=== PATIENT | female | born 1985 | race Asian ===

== ENCOUNTER 2020-11-24 16:25 | Inpatient (IN) | payer OTHER ==
[~2020-11-24] VITALS: Ht 165.1 cm; Wt 81.2 kg
[2020-11-25] MEDS ORDERED: ACETAMINOPHEN 325 MG TABLET PO PRN ×2 (12:15)
[2020-11-25] MEDS ORDERED: MAGNESIUM HYDROXIDE SUSPENSION 30 ML UDCUP PO PRN (12:15)
[2020-11-25] MEDS ORDERED: OxyCODONE HCL/ACETAMINOPHEN 5-325 MG TABLET PO PRN (12:15)
[2020-11-25 12:28] VITALS: BP 143/70
[2020-11-25] MEDS: FAMOTIDINE 20 MG TABLET PO SCH (16:18)
[2020-11-25] MEDS: DOCUSATE SODIUM 100 MG CAPSULE PO SCH ×2 (16:18→20:36)
[2020-11-25 16:43] VITALS: BP 126/91
[2020-11-25] MEDS ORDERED: DEXTROSE 50%-WATER 25 GM/50 ML SYRINGE IVP PRN (17:15)
[2020-11-25 20:00] VITALS: BP_SYST 110; BP_DIAS 59; BP_DIAS 83
[2020-11-25] MEDS: DEXAMETHASONE 4 MG TABLET PO SCH (20:37)
[2020-11-25] MEDS: SENNA 187 MG TABLET PO SCH (20:37)
[2020-11-25 21:17] LABS: GLUCOMETER DEV NAME(LOC) 2WR.1C; GLUCOSE,POINT OF CARE 124 MG/DL (70-110)
[2020-11-26] MEDS: FAMOTIDINE 20 MG TABLET PO SCH ×2 (05:29→16:35)
[2020-11-26 05:40] VITALS: BP 118/78
[2020-11-26 05:50] LABS: GLUCOMETER DEV NAME(LOC) 2WR.1C; GLUCOSE,POINT OF CARE 126 MG/DL (70-110)
[2020-11-26 08:10] VITALS: BP 122/50
[2020-11-26] MEDS: DOCUSATE SODIUM 100 MG CAPSULE PO SCH ×2 (08:19→20:25)
[2020-11-26] MEDS: DEXAMETHASONE 4 MG TABLET PO SCH ×2 (08:19→20:25)
[2020-11-26] MEDS: POLYETHYLENE GLYCOL 3350 17 GM PACKET PO SCH (08:19)
[2020-11-26 08:36] LABS: BASOPHILS % (AUTO) 0.4 % (0.0-2.0); EOSINOPHILS % (AUTO) 0 % (1.0-6.0); HEMATOCRIT 37.2 % (36-46); HEMOGLOBIN 12.2 g/dL (12.0-16.0); LYMPHOCYTES # (AUTO) 1.9 K/uL (1.0-4.8); LYMPHOCYTES % (AUTO) 14.9 % (22.0-44.0); MEAN CORPUSCULAR HEMOGLOBIN 29.5 pg (26.0-34.0); MEAN CORPUSCULAR HGB CONC 32.7 G/dL (31.0-37.0); MEAN CORPUSCULAR VOLUME 90 fL (80-100); MONOCYTES # (AUTO) 0.8 K/uL (0.1-1.0); MONOCYTES % (AUTO) 5.9 % (2.0-9.0); NEUTROPHILS # (AUTO) 10.1 K/uL (1.8-7.7); NEUTROPHILS % (AUTO) 78.8 % (40.0-70.0); PLATELET COUNT (AUTO) 325 K/uL (150-450); RED BLOOD CELL COUNT(AUTO) 4.12 MIL/uL (4.00-5.20); RED CELL DISTRIBUTION WIDTH 13.8 % (11.5-14.5)
[2020-11-26 08:51] LABS: ALANINE AMINOTRANSFERASE 33 U/L (12-78); ALBUMIN 4.2 g/dL (3.4-5.0); ALKALINE PHOSPHATASE 63 U/L (46-116); ANION GAP 10 mmol/L (8-16); ASPARTATE AMINOTRANSFERASE 14 U/L (15-37); BILIRUBIN,TOTAL 0.4 mg/dL (0.1-1.0); CALCIUM, TOTAL 8.3 mg/dL (8.8-10.5); CARBON DIOXIDE 28 mmol/L (22-29); CHLORIDE 99 mmol/L (98-107); CREATININE 0.59 mg/dL (0.60-1.30); GLOMERULAR FILTR. RATE CALC > 60 mL/min (>60); GLUCOSE,RANDOM 127 mg/dL (70-110); POTASSIUM 3.9 mmol/L (3.5-5.1); SODIUM SERUM 137 mmol/L (136-145); TOTAL PROTEIN, SERUM 7.1 g/dL (6.4-8.2); UREA NITROGEN, BLOOD 16 mg/dL (7-18)
[2020-11-26 16:10] VITALS: BP 110/66
[2020-11-26 17:52] LABS: GLUCOMETER DEV NAME(LOC) 2WR.1C; GLUCOSE,POINT OF CARE 120 MG/DL (70-110)
[2020-11-26 17:52] LABS: GLUCOMETER DEV NAME(LOC) 2WR.1C; GLUCOSE,POINT OF CARE 177 MG/DL (70-110)
[2020-11-26] MEDS: SENNA 187 MG TABLET PO SCH (20:25)
[2020-11-26 21:36] LABS: GLUCOMETER DEV NAME(LOC) 2WR.1C; GLUCOSE,POINT OF CARE 236 MG/DL (70-110)
[2020-11-27 05:00] VITALS: BP 120/75
[2020-11-27] MEDS: FAMOTIDINE 20 MG TABLET PO SCH ×3 (05:42→20:34)
[2020-11-27] MEDS: POLYETHYLENE GLYCOL 3350 17 GM PACKET PO SCH (08:34)
[2020-11-27] MEDS: DEXAMETHASONE 4 MG TABLET PO SCH ×2 (08:34→20:34)
[2020-11-27] MEDS: DOCUSATE SODIUM 100 MG CAPSULE PO SCH ×2 (08:53→20:34)
[2020-11-27 09:22] VITALS: BP 121/78
[2020-11-27 12:32] LABS: GLUCOMETER DEV NAME(LOC) 2WR.1C; GLUCOSE,POINT OF CARE 142 MG/DL (70-110)
[2020-11-27 13:26] LABS: GLUCOMETER DEV NAME(LOC) 2WR.2B; GLUCOSE,POINT OF CARE 99 MG/DL (70-110)
[2020-11-27 16:16] VITALS: BP 122/76
[2020-11-27 17:25] LABS: GLUCOMETER DEV NAME(LOC) 2WR.1C; GLUCOSE,POINT OF CARE 133 MG/DL (70-110)
[2020-11-27] MEDS: SENNA 187 MG TABLET PO SCH (20:34)
[2020-11-27] MEDS: INSULIN LISPRO 100 UNITS/ML SQ PRN (20:47)
[2020-11-27] MEDS: MELATONIN 3 MG TABLET PO PRN (20:55)
[2020-11-27 21:26] LABS: GLUCOMETER DEV NAME(LOC) 2WR.2B; GLUCOSE,POINT OF CARE 169 MG/DL (70-110)
[2020-11-28] VITALS: BP 111/64
[2020-11-28 06:16] LABS: GLUCOMETER DEV NAME(LOC) 2WR.2B; GLUCOSE,POINT OF CARE 118 MG/DL (70-110)
[2020-11-28 07:52] VITALS: BP 131/65
[2020-11-28 08:01] VITALS: BP 131/65
[2020-11-28] MEDS: DOCUSATE SODIUM 100 MG CAPSULE PO SCH ×2 (08:23→20:46)
[2020-11-28] MEDS: POLYETHYLENE GLYCOL 3350 17 GM PACKET PO SCH (08:29)
[2020-11-28] MEDS: DEXAMETHASONE 4 MG TABLET PO SCH ×2 (08:30→20:47)
[2020-11-28] MEDS: FAMOTIDINE 20 MG TABLET PO SCH ×2 (08:30→20:46)
[2020-11-28 16:00] VITALS: BP 110/72
[2020-11-28 19:51] LABS: GLUCOMETER DEV NAME(LOC) 2WR.2B; GLUCOSE,POINT OF CARE 163 MG/DL (70-110)
[2020-11-28] MEDS: INSULIN LISPRO 100 UNITS/ML SQ PRN (20:45)
[2020-11-28] MEDS: MELATONIN 3 MG TABLET PO PRN (20:46)
[2020-11-28] MEDS: SENNA 187 MG TABLET PO SCH (20:46)
[2020-11-28 21:35] LABS: GLUCOMETER DEV NAME(LOC) 2WR.1C; GLUCOSE,POINT OF CARE 154 MG/DL (70-110)
[2020-11-29 05:41] VITALS: BP 116/75
[2020-11-29 08:01] VITALS: BP 121/81
[2020-11-29] MEDS: DEXAMETHASONE 2 MG TABLET PO SCH ×2 (08:33→21:18)
[2020-11-29] MEDS: FAMOTIDINE 20 MG TABLET PO SCH ×2 (08:33→21:17)
[2020-11-29] MEDS: DOCUSATE SODIUM 100 MG CAPSULE PO SCH ×2 (08:33→21:17)
[2020-11-29] MEDS: POLYETHYLENE GLYCOL 3350 17 GM PACKET PO SCH (08:34)
[2020-11-29 16:00] VITALS: BP 113/75
[2020-11-29 16:15] LABS: GLUCOMETER DEV NAME(LOC) 2WR.1C; GLUCOSE,POINT OF CARE 119 MG/DL (70-110)
[2020-11-29 17:43] LABS: GLUCOMETER DEV NAME(LOC) 2WR.1C; GLUCOSE,POINT OF CARE 84 MG/DL (70-110)
[2020-11-29] MEDS: SENNA 187 MG TABLET PO SCH (21:17)
[2020-11-30 00:10] VITALS: BP 112/71
[2020-11-30 05:57] LABS: GLUCOMETER DEV NAME(LOC) 2WR.1C; GLUCOSE,POINT OF CARE 136 MG/DL (70-110)
[2020-11-30] MEDS: FAMOTIDINE 20 MG TABLET PO SCH ×2 (07:48→20:04)
[2020-11-30] MEDS: DOCUSATE SODIUM 100 MG CAPSULE PO SCH ×2 (07:48→20:03)
[2020-11-30] MEDS: DEXAMETHASONE 2 MG TABLET PO SCH ×2 (07:48→20:04)
[2020-11-30] MEDS: POLYETHYLENE GLYCOL 3350 17 GM PACKET PO SCH (07:49)
[2020-11-30 08:10] VITALS: BP 112/66
[2020-11-30 15:33] VITALS: BP 127/71
[2020-11-30 18:02] LABS: GLUCOMETER DEV NAME(LOC) 2WR.2B; GLUCOSE,POINT OF CARE 105 MG/DL (70-110)
[2020-11-30] MEDS: SENNA 187 MG TABLET PO SCH (20:04)
[2020-12-01] MEDS ORDERED: FAMO20 PO (00:54)
[2020-12-01] MEDS ORDERED: DEXA4 PO (00:54)
[2020-12-01] MEDS ORDERED: POLY17PO47 PO (00:54)
[2020-12-01] MEDS ORDERED: DOCU-275 PO (00:54)
[2020-12-01] MEDS ORDERED: DEXA2 PO (00:54)
[2020-12-01 05:45] VITALS: BP_SYST 114; BP_SYST 119; BP_DIAS 54; BP_DIAS 88
[2020-12-01 06:13] LABS: GLUCOMETER DEV NAME(LOC) 2WR.1C; GLUCOSE,POINT OF CARE 139 MG/DL (70-110)
[2020-12-01 08:29] VITALS: BP 116/73
[2020-12-01] MEDS: POLYETHYLENE GLYCOL 3350 17 GM PACKET PO SCH (09:41)
[2020-12-01] MEDS: FAMOTIDINE 20 MG TABLET PO SCH ×2 (09:42→21:37)
[2020-12-01] MEDS: DOCUSATE SODIUM 100 MG CAPSULE PO SCH ×2 (09:42→21:37)
[2020-12-01] MEDS: DEXAMETHASONE 2 MG TABLET PO SCH ×2 (09:43→21:37)
[2020-12-01 16:00] VITALS: BP 128/69
[2020-12-01] MEDS: SENNA 187 MG TABLET PO SCH (21:37)
[2020-12-01 22:05] LABS: GLUCOMETER DEV NAME(LOC) 2WR.2B; GLUCOSE,POINT OF CARE 190 MG/DL (70-110)
[2020-12-02 00:16] VITALS: BP 112/75
[2020-12-02 06:28] LABS: GLUCOMETER DEV NAME(LOC) 2WR.1C; GLUCOSE,POINT OF CARE 161 MG/DL (70-110)
[2020-12-02] MEDS: POLYETHYLENE GLYCOL 3350 17 GM PACKET PO SCH (08:08)
[2020-12-02] MEDS: FAMOTIDINE 20 MG TABLET PO SCH (08:08)
[2020-12-02] MEDS: DOCUSATE SODIUM 100 MG CAPSULE PO SCH (08:09)
[2020-12-02 08:12] VITALS: BP 112/70
[2020-12-02] MEDS ORDERED: DEXAMETHASONE 4 MG TABLET PO SCH (09:00)
[2020-12-05] MEDS ORDERED: DEXAMETHASONE 2 MG TABLET PO SCH (09:00)
== END 2020-12-02 11:00 | disposition home or self-care (01) | DRG 55 ==
LOC: 2WR 11-25 11:45 → EDBD 11-25 11:45
PROVIDERS: ADMIT Physical Medicine & Rehabilitation; ATTEND Physical Medicine & Rehabilitation
DX: D49.6 Neoplasm of unspecified behavior of brain (principal); R27.0 Ataxia, unspecified; D64.9 Anemia, unspecified; K59.00 Constipation, unspecified; R47.1 Dysarthria and anarthria; D72.829 Elevated white blood cell count, unspecified; Z91.81 History of falling; Z86.32 Personal history of gestational diabetes; Z98.890 Other specified postprocedural states; H91.92 Unspecified hearing loss, left ear; R13.10 Dysphagia, unspecified; R26.89 Other abnormalities of gait and mobility; H55.00 Unspecified nystagmus
CPT/HCPCS: 80053; 82962; 85025; 87081; 92507; 92610; 93970; 97110; 97112; 97116; 97163; 97166; 97530; 97535; 99366; J8540